=== PATIENT | male | born 1990 | race Caucasian/White ===

== ENCOUNTER 2018-11-05 08:23 | Inpatient (IN) | payer BC ==
[~2018-11-05] VITALS: Ht 167.6 cm; Wt 88.5 kg
[2018-11-05] MEDS ORDERED: IV NORMAL SALINE 1000 ML BAG IV ONE (09:00)
[2018-11-05 09:06] LABS: BASOPHILS % (AUTO) 0.4 % (0.0-2.0); EOSINOPHILS # (AUTO) 0.2 K/uL (0.0-0.7); EOSINOPHILS % (AUTO) 2.3 % (0.0-7.0); HEMATOCRIT 47.4 % (36.7-47.1); HEMOGLOBIN 16.7 g/dL (12.5-16.3); LYMPHOCYTES # (AUTO) 2.7 K/uL (20.0-40.0); LYMPHOCYTES % (AUTO) 34.6 % (20.5-51.5); MEAN CORPUSCULAR HGB CONC 35 g/dL (32.5-36.3); MEAN CORPUSCULAR VOLUME 85.3 fL (73.0-96.2); MONOCYTES # (AUTO) 0.6 K/uL (2.0-10.0); MONOCYTES % (AUTO) 7.6 % (0.0-11.0); NEUTROPHILS # (AUTO) 4.3 K/uL (1.8-8.9); NEUTROPHILS % (AUTO) 55.1 % (38.5-71.5); PLATELET COUNT (AUTO) 227 K/uL (152-348); RED BLOOD CELL COUNT(AUTO) 5.56 MIL/uL (4.06-5.63); WHITE BLOOD COUNT (AUTO) 7.9 K/uL (3.6-10.2)
[2018-11-05 09:13] LABS: CREATININE 0.9 mg/dL (0.6-1.3); POTASSIUM 3.6 mmol/L (3.5-5.1)
[2018-11-05 09:18] LABS: BILIRUBIN,DIRECT 0.1 mg/dL (0.0-0.2); BILIRUBIN,TOTAL 0.4 mg/dL (0.2-1.0); TOTAL PROTEIN, SERUM 8.4 g/dL (6.4-8.2)
[2018-11-05] MEDS ORDERED: SWABABLE VALVE TRANSFER SET EA MC ONE (09:59)
[2018-11-05] MEDS ORDERED: IOHEXOL 300MG/ML 100 ML INFUS..BTL ONE (09:59)
[2018-11-05] MEDS ORDERED: IV NORMAL SALINE 250 ML IV ONE (09:59)
[2018-11-05 10:11] LABS: *BILIRUBIN,URIN NEGATIVE (NEGATIVE); *BLOOD, URINE Trace-lysed (NEGATIVE); *CLARITY,URINE CLEAR (CLEAR); *COLOR,URINE YELLOW (YELLOW); *KETONES,URINE NEGATIVE (NEGATIVE); *UROBILINOGEN,URINE 0.2 E.U./dl (NORMAL); LEUKOCYTE ESTERASE ,URINE NEGATIVE (NEGATIVE); NITRITE, URINE NEGATIVE (NEGATIVE); UGLUCOSE NEGATIVE (NEGATIVE)
[2018-11-05 10:16] LABS: BACTERIA,URINE FEW /HPF (NONE SEEN); RBC,URINE NONE SEEN /HPF (0-3); SQUAMOUS EPITHELIAL CELL,UR FEW /HPF (NONE SEEN); WBC,URINE 0-3 /HPF (0-3)
[2018-11-05] MEDS ORDERED: DEXAMETHASONE SOD PHOSPHATE 4 MG INJ IV ONE (11:00)
[2018-11-05] MEDS ORDERED: CEFTRIAXONE 1 G in IV DEXTROSE 5% 50 ML IV ONE (11:00)
[2018-11-05] MEDS ORDERED: CEFTRIAXONE 1 G VIAL ONE (11:12)
[2018-11-05] MEDS ORDERED: DEXAMETHASONE SOD PHOSPHATE 4 MG INJ ONE (11:12)
[2018-11-05 11:21] LABS: *MONOTEST NEGATIVE (NEGATIVE)
[2018-11-05] MEDS ORDERED: diphenhydrAMINE 50 MG/1 ML VIAL IV ONE (13:15)
[2018-11-05] MEDS ORDERED: FAMOTIDINE. 20 MG/2 ML VIAL IV ONE ×2 (13:15→13:17)
[2018-11-05] MEDS ORDERED: IV D5W-0.45% NS 1000 ML BAG IV ONE (13:15)
[2018-11-05] MEDS ORDERED: diphenhydrAMINE 50 MG/1 ML VIAL ONE (13:16)
[2018-11-05] MEDS ORDERED: CLINDAMYCIN PHOSPHATE IV 600 MG in IV DEXTROSE 5% 100 ML IV ONE (17:00)
[2018-11-05] MEDS ORDERED: CLINDAMYCIN PHOSPHATE 600 MG/4 ML VIAL ONE ×2 (17:04→22:29)
[2018-11-05 17:50] VITALS: BP 111/70
[2018-11-05] MEDS ORDERED: MORPHINE SULFATE 4 MG/1 ML DISP.SYRIN IV PRN (19:45)
[2018-11-05] MEDS ORDERED: ONDANSETRON 4 MG/2 ML VIAL IV PRN (19:45)
[2018-11-05] MEDS ORDERED: ACETAMINOPHEN 650 MG SUPP.RECT RC PRN (19:45)
[2018-11-05] MEDS ORDERED: ASPIRIN EC 325 MG TABLET.DR PO ONE (20:26)
[2018-11-05] MEDS ORDERED: BENZOCAINE/MENTH/CETYLPYRD LOZENGE MM PRN (21:45)
[2018-11-05] MEDS ORDERED: ASPIRIN 325 MG TABLET ONE (21:55)
[2018-11-05] MEDS: FAMOTIDINE. 20 MG/2 ML VIAL IV SCH (22:08)
[2018-11-05] MEDS: CLINDAMYCIN PHOSPHATE IV 600 MG in IV DEXTROSE 5% 100 ML IV SCH (22:08)
[2018-11-06 00:38] VITALS: BP 115/62
[2018-11-06 04:00] VITALS: BP 101/58
[2018-11-06] MEDS: IV D5/ 0.9% NACL 1,000 ML IV PRN ×2 (05:04→21:18)
[2018-11-06] MEDS: CLINDAMYCIN PHOSPHATE IV 600 MG in IV DEXTROSE 5% 100 ML IV SCH ×3 (05:04→21:00)
[2018-11-06 05:30] LABS: BASOPHILS # (AUTO) 0.1 K/uL (0.0-8.0); BASOPHILS % (AUTO) 0.4 % (0.0-2.0); EOSINOPHILS % (AUTO) 0.2 % (0.0-7.0); HEMATOCRIT 44.9 % (36.7-47.1); HEMOGLOBIN 15.8 g/dL (12.5-16.3); LYMPHOCYTES # (AUTO) 2.4 K/uL (20.0-40.0); LYMPHOCYTES % (AUTO) 17.5 % (20.5-51.5); MEAN CORPUSCULAR HGB CONC 35 g/dL (32.5-36.3); MEAN CORPUSCULAR VOLUME 85.4 fL (73.0-96.2); MONOCYTES # (AUTO) 1.2 K/uL (2.0-10.0); MONOCYTES % (AUTO) 8.3 % (0.0-11.0); NEUTROPHILS # (AUTO) 10.3 K/uL (1.8-8.9); NEUTROPHILS % (AUTO) 73.6 % (38.5-71.5); PLATELET COUNT (AUTO) 217 K/uL (152-348); RED BLOOD CELL COUNT(AUTO) 5.26 MIL/uL (4.06-5.63)
[2018-11-06 05:46] LABS: BILIRUBIN,TOTAL 0.6 mg/dL (0.2-1.0); CREATININE 0.8 mg/dL (0.6-1.3); MAGNESIUM 1.9 mg/dL (1.8-2.4); PHOSPHOROUS 4.5 mg/dL (2.5-4.9); POTASSIUM 3.9 mmol/L (3.5-5.1); TOTAL PROTEIN, SERUM 8.1 g/dL (6.4-8.2)
[2018-11-06] MEDS: FAMOTIDINE. 20 MG/2 ML VIAL IV SCH ×2 (09:09→20:55)
[2018-11-06 11:13] VITALS: BP 109/60
[2018-11-06] MEDS ORDERED: GADODIAMIDE 5 MMOL/10 ML VIAL ONE (11:42)
[2018-11-06 12:43] LABS: THYROID STIMULATING HORMONE 0.818 mIU/mL (0.358-3.740)
[2018-11-06 15:12] VITALS: BP 111/64
[2018-11-06] MEDS ORDERED: CEFTRIAXONE 1 G in IV DEXTROSE 5% 50 ML IV SCH (18:00)
[2018-11-06] MEDS: DEXAMETHASONE SOD PHOSPHATE 4 MG INJ IV SCH (19:00)
[2018-11-06 20:40] VITALS: BP 110/59
[2018-11-07] VITALS: BP 114/60
[2018-11-07 05:18] VITALS: BP 111/71
[2018-11-07] MEDS: CLINDAMYCIN PHOSPHATE IV 600 MG in IV DEXTROSE 5% 100 ML IV SCH (05:40)
[2018-11-07] MEDS: DEXAMETHASONE SOD PHOSPHATE 4 MG INJ IV SCH (09:00)
[2018-11-07] MEDS: FAMOTIDINE. 20 MG/2 ML VIAL IV SCH (09:17)
[2018-11-09 09:29] LABS: *MONOTEST NEGATIVE (NEGATIVE)
== END 2018-11-07 12:25 | disposition left against medical advice (07) | DRG 153 ==
LOC: ER 08:23 → TELE 17:24
PROVIDERS: ADMIT Internal Medicine; ATTEND Internal Medicine
DX: J03.90 Acute tonsillitis, unspecified (principal); B34.9 Viral infection, unspecified; J34.1 Cyst and mucocele of nose and nasal sinus; R49.0 Dysphonia; E66.3 Overweight; Z68.31 Body mass index [BMI] 31.0-31.9, adult; G62.9 Polyneuropathy, unspecified; J98.8 Other specified respiratory disorders; R26.81 Unsteadiness on feet; Z82.3 Family history of stroke
CPT/HCPCS: 36415; 70450; 70491; 70553; 71045; 83735; 84100; 84443; 85025; 85730; 86308; 86403; 87070; 87806; 93005; 93880; A4663; G0378; J0696; J1100; J1200; J2270; J3490; J7042; J7050; J7060; Q9967